=== PATIENT | female | born 1985 | race Caucasian/White ===

== ENCOUNTER 2016-10-18 21:15 | Emergency (ER) | payer OTHER ==
[~2016-10-18] VITALS: Ht 160 cm; Wt 88.8 kg
[2016-10-18 21:27] VITALS: BP 109/68; PULSE 104; RESP 18; TEMP 98.4; O2SAT 98
[2016-10-18 21:45] VITALS: BP 134/61; PULSE 101; RESP 18; O2SAT 100
[2016-10-18] MEDS ORDERED: SODIUM CHLORIDE 0.9% FLUSH 10 ML FLUSH IV FLUSH PRN (21:45)
--- NOTE | 2016-10-18 21:48 | PD ---
HPI Chief Complaint: Musculoskeletal Complaint Time Seen by Provider: 21:32 Travel History International Travel<30 days: No Contact w/Intl Traveler<30days: No Traveled to known affect area: No History of Present Illness HPI Patient is a 31-year-old female presents emergency department for complaints of left lower extremity swelling and sensation that the bruise on the posterior aspect of her calf. Patient states symptoms been going on for 3 days and constant. States she's not yet established with an PEDIATRIC ANESTHESIOLOGIST states she is approximately 6 weeks . She is G6 PD 3023. Denies any shortness of breath. Denies a vaginal bleeding vaginal discharge or loss of fluid. Denies any history of blood clots. On review of systems the patient does endorse some mild right lower quadrant discomfort which is been nagging her for the past week or so. No nausea vomiting diarrhea constipation. PFSH Past Medical History Medical History: Denies Significant Hx Diminished Hearing: No Tetanus Vaccination: Unknown Influenza Vaccination: No ?: LMP: 09/02/16 Past Surgical History Section: Yes Gynecologic Surgery: Yes () Social History Alcohol Use: No Tobacco Use: No Substance Use: No Allergies-Medications (Allergen,Severity, Reaction): Coded Allergies: No Known Allergies (Unverified , 10/18/16) Reported Meds & Prescriptions Reported Meds & Active Scripts Active Macrobid (Nitrofurantoin Monoh/Nitrofur Macro) 100 Mg Cap 100 Mg PO BID 7 Days Plus Iron 29-1 mg ( Vit-Iron Carbonyl) 1 Tab Tab 1 Tab PO DAILY Review of Systems Except as stated in HPI: all other systems reviewed are Neg Physical Exam Narrative GENERAL: Well-developed well-nourished no apparent distress. SKIN: Focused skin assessment warm/dry. HEAD: Atraumatic. Normocephalic. EYES: Pupils equal and round. No scleral icterus. No injection or drainage. ENT: No nasal bleeding or discharge. Mucous membranes pink and moist. NECK: Trachea midline. No JVD. CARDIOVASCULAR: Regular rate and rhythm. No murmur appreciated. RESPIRATORY: No accessory muscle use. Clear to auscultation. Breath sounds equal bilaterally. GASTROINTESTINAL: Abdomen soft, non-tender, nondistended. Hepatic and splenic margins not palpable. MUSCULOSKELETAL: No obvious deformities. No clubbing. No cyanosis. There is 1 + minimal edema to bilateral lower extremities, left lower extremity is possibly slightly increased in caliber over the right. Homans sign is negative. Nontender to palpation. No bruising. No cordlike structure appreciated. NEUROLOGICAL: Awake and alert. No obvious cranial nerve deficits. Motor grossly within normal limits. Normal speech. PSYCHIATRIC: Appropriate mood and affect; insight and judgment normal. Data Data Last Documented VS Vital Signs Date Time Temp Pulse Resp B/P Pulse Ox O2 Delivery O2 Flow Rate FiO2 10/19/16 00:25 102 16 107/66 98 Room Air 10/18/16 21:27 98.4 Orders Basic Metabolic Panel (Bmp) (10/18/16 21:37) Beta Hcg (Quant/Titer) (10/18/16 21:37) Comprehensive Metabolic Panel (10/18/16 21:37) Prothrombin Time / Inr (Pt) (10/18/16 21:37) Act Partial Throm Time (Ptt) (10/18/16 21:37) Urinalysis - C+S If Indicated (10/18/16 21:37) Iv Access Insert/Monitor (10/18/16 21:37) Ecg Monitoring (10/18/16 21:37) Oximetry (10/18/16 21:37) Sodium Chloride 0.9% Flush (Ns Flush) (10/18/16 21:45) Electrocardiogram (10/18/16 21:37) Us Leg Venous Doppler (10/18/16 21:37) Us Pelvis (Ques Pr/Ect)W Trans (10/18/16 21:37) Ed Urine Pregnancytest Poc (10/18/16 22:18) Urine Culture (10/18/16 22:00) Complete Blood Count With Diff (10/18/16 22:47) Nitrofurantoin Monohyd Macrocr (Macrobid (10/19/16 00:45) Labs Laboratory Tests Test 10/18/16 22:00 White Blood Count 10.3 TH/MM3 Red Blood Count 4.20 MIL/MM3 Hemoglobin 12.6 GM/DL Hematocrit 36.0 % Mean Corpuscular Volume 85.8 FL Mean Corpuscular Hemoglobin 29.9 PG Mean Corpuscular Hemoglobin 34.9 % Concent Red Cell Distribution Width 13.1 % Platelet Count 232 TH/MM3 Mean Platelet Volume 10.3 FL Neutrophils (%) (Auto) 57.7 % Lymphocytes (%) (Auto) 32.1 % Monocytes (%) (Auto) 7.5 % Eosinophils (%) (Auto) 2.0 % Basophils (%) (Auto) 0.7 % Neutrophils # (Auto) 5.9 TH/MM3 Lymphocytes # (Auto) 3.3 TH/MM3 Monocytes # (Auto) 0.8 TH/MM3 Eosinophils # (Auto) 0.2 TH/MM3 Basophils # (Auto) 0.1 TH/MM3 CBC Comment DIFF FINAL Differential Comment Prothrombin Time 9.7 SEC Prothromb Time International 0.9 RATIO Ratio Activated Partial 25.0 SEC Thromboplast Time Urine Color YELLOW Urine Turbidity CLEAR Urine pH 6.0 Urine Specific Dwight 1.016 Urine Protein NEG mg/dL Urine Glucose (UA) NEG mg/dL Urine Ketones NEG mg/dL Urine Occult Blood NEG Urine Nitrite NEG Urine Bilirubin NEG Urine Leukocyte Esterase NEG Urine RBC 0-2 /hpf Urine WBC 3-5 /hpf Urine Squamous Epithelial 0-5 /hpf Cells Urine Bacteria MANY /hpf Microscopic Urinalysis Comment CULTURE INDICATED Sodium Level 141 MEQ/L Potassium Level 3.5 MEQ/L Chloride Level 107 MEQ/L Carbon Dioxide Level 24.5 MEQ/L Anion Gap 10 MEQ/L Blood Urea Nitrogen 15 MG/DL Creatinine 0.76 MG/DL Estimat Glomerular Filtration 89 ML/MIN Rate Random Glucose 95 MG/DL Calcium Level 7.6 MG/DL Total Bilirubin 0.1 MG/DL Aspartate Amino Transf 16 U/L (AST/SGOT) Alanine Aminotransferase 25 U/L (ALT/SGPT) Alkaline Phosphatase 79 U/L Total Protein 6.9 GM/DL Albumin 3.2 GM/DL Human Chorionic Gonadotropin, 5196 MIU/ML Quant [facility] Medical Decision Making Medical Screen Exam Complete: Yes Emergency Medical Condition: Yes Interpretation(s) EKG shows normal sinus rhythm normal axis normal R-wave progression. No concerning ST segment changes. Intervals within normal limits. This normal EKG. Differential Diagnosis DVT seems unlikely, preeclampsia seems unlikely, ectopic seems unlikely but needs exclusion. Urinary tract infection, asymptomatic bacteriuria. Narrative Course Patient was roomed emergency department, she appears well in no apparent distress. Her abdominal pain was only elicited by review of systems. Ultrasound were obtained of her left lower extremity as well as her abdomen: Last 24 hours Impressions Pelvis Ultrasound 10/18/16 6414 Signed Impressions: Service Date/Time: Tuesday, October 18, 2016 23:06 - CONCLUSION: 1. Early intrauterine which is too early for dating. This appears approximately 4-5 weeks of menstrual age. 2. Small hypoechoic fluid collections in the uterus which could represent small subchorionic hemorrhages. He 3. Small complex cyst in right ovary most consistent with an early corpus luteal cyst. Tarun Gould MD Lower Extremity Ultrasound 10/18/16 2430 Signed Impressions: Service Date/Time: Tuesday, October 18, 2016 22:56 - CONCLUSION: Unremarkable exam with no evidence of deep venous thrombosis. Tarun Gould MD Patient does have some subchorionic hemorrhage, she does not know her blood type but states she has not needed any shot after her previous pregnancies. Highly doubt any maternal hemorrhage at this time. Recommended the patient have a pelvic exam and she declined at this time. She is stable for discharge and recommend following with an PEDIATRIC ANESTHESIOLOGIST. Diagnosis Primary Impression: Pain and swelling of left lower extremity Additional Impression: Asymptomatic bacteriuria Additional Instructions: Follow-up with your PEDIATRIC ANESTHESIOLOGIST as soon as possible. Scripts Nitrofurantoin Monohydrate Macrocrystals (Macrobid)100 Mg [id number] Mg PO BID 7 Days Ref 0 Prov:Jarvis Griggs MD 10/19/16 Vit-Iron Carbonyl ( Plus Iron 29-1 mg)1 Tab Tab1 Tab PO DAILY #30 TAB Ref 9 Prov:Jarvis Griggs MD 10/19/16 Disposition: 01 DISCHARGE HOME Condition: Stable Jarvis Griggs MD Oct 18, 2016 21:48
[2016-10-18 22:36] LABS: CHLORIDE 107 MEQ/L (98-107); POTASSIUM 3.5 MEQ/L (3.5-5.1); SODIUM (NA) 141 MEQ/L (136-145)
[2016-10-18 22:38] LABS: BLOOD, URINE NEG (NEG); GLUCOSE,URINE NEG (NEG); KETONE, URINE NEG (NEG); NITRITE,URINE NEG (NEG)
[2016-10-18 22:40] LABS: ANION GAP 10 MEQ/L (5-15); BICARBONATE 24.5 MEQ/L (21.0-32.0)
[2016-10-18 22:41] LABS: BLOOD UREA NITROGEN 15 MG/DL (7-18)
[2016-10-18 22:43] LABS: ALT (GPT) 25 U/L (10-53)
[2016-10-18 22:44] LABS: AST (GOT) 16 U/L (15-37); GLOMERULAR FILTRATION RATE 89 ML/MIN (>89)
[2016-10-18 22:45] LABS: TOTAL BILIRUBIN ADULT 0.1 MG/DL (0.2-1.0); URINE COLOR YELLOW (YELLW/STRAW)
[2016-10-18 22:46] LABS: ALKALINE PHOSPHATASE 79 U/L (45-117); BACTERIA, URINE MANY /hpf; COMMENT (UR) CULTURE INDICATED; CULTURE IF INDICATED CULTURE INDICATED; RBC, URINE 0-2 /hpf (0-3); SQUAMOUS EPITHELIAL CELL URINE 0-5 /hpf (0-5)
[2016-10-18 22:49] LABS: INTERNATIONAL NORMALIZED RATIO 0.9 RATIO; PROTHROMBIN TIME - PATIENT 9.7 SEC (9.8-11.6)
[2016-10-18 22:54] LABS: AUTOMATED NEUTROPHIL # 5.9 TH/MM3 (1.8-7.7); BASOPHIL # 0.1 TH/MM3 (0-0.2); BASOPHIL % 0.7 % (0.0-2.0); EOSINOPHIL # 0.2 TH/MM3 (0-0.4); HEMO FLAGS DIFF FINAL; LYMPH % 32.1 % (9.0-44.0); LYMPHOCYTE # 3.3 TH/MM3 (1.0-4.8); MEAN CELL VOLUME 85.8 FL (80.0-100.0); MEAN CORPUSCULAR HEMOGLOBIN 29.9 PG (27.0-34.0); MEAN CORPUSCULAR HGB CONC 34.9 % (32.0-36.0); MONO % 7.5 % (0.0-8.0); NEUT % 57.7 % (16.0-70.0); PLATELET COUNT 232 TH/MM3 (150-450); RED CELL DISTRIBUTION WIDTH 13.1 % (11.6-17.2); WHITE BLOOD COUNT 10.3 TH/MM3 (4.0-11.0)
[2016-10-18 23:00] VITALS: BP 122/67; PULSE 110; RESP 16; O2SAT 100
[2016-10-18 23:01] LABS: BETA HCG QUANT 5196 MIU/ML (0-5)
--- NOTE | 2016-10-18 23:42 | RADHPO ---
EXAM DATE/TIME: 10/18/2016 22:56 [facility] COMPARISON: No previous studies available for comparison. INDICATIONS : Left leg swelling and pain. MEDICAL HISTORY : . SURGICAL HISTORY : section. ENCOUNTER: Initial ACUITY: 3 days PAIN SCORE: 0/10 LOCATION: Left leg. TECHNIQUE: Venous ultrasound of the leg was performed from the inguinal ligament to the proximal calf. Real-jay e, color Doppler and spectral tracing, compression and augmentation techniques were used. FINDINGS: There is normal compressibility of the deep venous system from the inguinal region to the proximal ca lf. No echogenic clot is seen in the lumen of the common femoral, femoral, popliteal, and posterior tibial veins. There is a normal response of the venous system to proximal and distal augmentation an d respiration. CONCLUSION: Unremarkable exam with no evidence of deep venous thrombosis. Tarun Gould MD on October 18, 2016 at 23:39 Board Certified Radiologist. This report was verified electronically.
--- NOTE | 2016-10-18 23:53 | RADHPO ---
EXAM DATE/TIME: 10/18/2016 23:06 [facility] COMPARISON: No previous studies available for comparison. INDICATIONS : Pelvic pain. LAB(S): Beta-hC,196 MEDICAL HISTORY : . SURGICAL HISTORY : section. ENCOUNTER: Initial ACUITY: 2 days PAIN SCORE: 5/10 LOCATION: Bilateral pelvis MEASUREMENTS: UTERUS: 9.6 x 6.9 x 5.6 cm ENDOMETRIAL STRIPE: 16 mm RIGHT OVARY: 4.4 x 3.1 x 2.7 cm LEFT OVARY: 2.6 x 2.3 x 2.3 cm FREE FLUID: No CROWN RUMP LENGTH: 0.2 cm FHR: Nonvisualized BPM FINDINGS: UTERUS: There is a single early intrauterine present with a well-formed gestational sac and small y olk sac. There is a small questionable pole. No heart beat could be identified. There are small hypoechoic areas in lower uterine segment measuring 11 x 4 x 7 mm and along the right side of the ge stational sac measuring 1.9 x 0.7 x 1.5 cm. RIGHT OVARY: There is a complex cystic structure measuring 2.3 x 1 point #1.9 cm. LEFT OVARY: Ovary contains no mass or significant cystic lesion. MISCELLANEOUS: No free fluid. CONCLUSION: 1. Early intrauterine which is too early for dating. This appears approximately 4-5 weeks o f menstrual age. 2. Small hypoechoic fluid collections in the uterus which could represent small subchorionic hemorrha ges. He 3. Small complex cyst in right ovary most consistent with an early corpus luteal cyst. Tarun Gould MD on October 18, 2016 at 23:47 Board Certified Radiologist. This report was verified electronically.
[2016-10-19] MEDS ORDERED: PREN29TA PO (00:10)
[2016-10-19] MEDS ORDERED: MACR100C2 PO (00:10)
[2016-10-19 00:25] VITALS: BP 107/66; PULSE 102; RESP 16; O2SAT 98
[2016-10-19] MEDS ORDERED: NITROFURANTOIN MONOHYD MACROCR 100 MG CAP PO ONE (00:45)
--- NOTE | 2016-10-20 09:59 | EKG ---
Date Performed: 10/18/2016 Time Performed: 21:50:08 PTAGE: 31 years EKG: Sinus rhythm Inferior and lateral ST elevation - possible early repolarization Borderline ECG NO PREVIOUS TRACING DOCTOR: Huey Barajas Interpretating Date/Time 10/20/2016 09:47:32
== END 2016-10-19 00:45 | disposition home or self-care (01) ==
LOC: EDBD → PHED 21:15
DX: M79.89 Other specified soft tissue disorders (principal); R10.31 Right lower quadrant pain
CPT/HCPCS: 76700; 76817; 80053; 81001; 84702; 84703; 85025; 85610; 85730; 87086; 93005; 93971; 99285

== ENCOUNTER 2017-05-30 11:39 | Emergency (ER) | payer OTHER ==
[~2017-05-30 11:39] MED LIST: MACR100C2 PO; PREN29TA PO
--- NOTE | 2017-05-30 12:14 | PD ---
HPI Chief Complaint lower pelvic pressure Date Seen: May 30, 2017 Travel History International Travel<30 Days: No Contact w/Intl Traveler<30Days: No History of Present Illness HPI Ms. Jones is a 31 yo patient of Susie Diaz at 38 3/7 weeks who presents to OB ED with complaint of lower pelvic pressure. Patient states that this started this morning; she was having [place] contractions previously. Patient describes pressure as constant and not suggestive of contractions. Patient does not report any associated vaginal symptoms, discharge , or bleeding. No dysuria or fevers. Patient thought she had decreased movement this morning but that she has since felt normal movement. Patient does not report significant chest pain or shortness of breath. Patient has chronic L leg swelling without pain. Patient reports benign course. She has history of CS x2; she has repeat CS and bilateral salpingectomy scheduled for next 06/03 at 39 weeks GA ( prior CS for previa, subsequent was repeat CS). Patient states that her GBS was obtained but she does not know her status. Weeks Gestation: 38 Para: 3 : 6 Miscarriage: 1 : 1 History Past Medical History Narrative Medical None reported Obstetric History Obstetric History CS x2 (1st for previa w/ ROM, second as repeat) Past Surgical History Narrative Surgical CS x2 Family History Family History: Negative Social History Alcohol Use: No Tobacco Use: No Substance Abuse: No Allergies-Medications (Allergen,Severity, Reaction): Coded Allergies: No Known Allergies (Unverified , 10/18/16) Home Meds Active Scripts Nitrofurantoin Monohydrate Macrocrystals (Macrobid) 100 Mg Cap, 100 MG PO BID for Infection for 7 Days, CAP 0 Refills Prov:Jarvis Griggs MD 10/19/16 Vit-Iron Carbonyl ( Plus Iron 29-1 mg) 1 Tab Tab, 1 TAB PO DAILY for Nutritional Supplement, #30 TAB 9 Refills Prov:Jarvis Griggs MD 10/19/16 Review of Systems General / Constitutional: No: Fever, Chills Eyes: No: Blurred Vision HENT: No: Headaches Cardiovascular: No: Chest Pain or Discomfort Respiratory: No: Short of Breath Gastrointestinal: Abdominal Pain, No: Nausea, Vomiting Genitourinary: No: Urgency, Dysuria Skin: No Rash, No Itching Psychiatric: No: Anxiety, Depression Physical Exam Afebrile Normotensive Stable VS Narrative GENERAL: Well-nourished, well-developed patient. SKIN: Warm and dry. HEAD: Normocephalic and atraumatic. EYES: No scleral icterus. No injection or drainage. ENT: No nasal drainage noted. Mucous membranes pink. Airway patent. NECK: Supple, trachea midline. No JVD. CARDIOVASCULAR: Regular rate and rhythm without murmurs. Normal perfusion RESPIRATORY: CTAB; normal rate ABDOMEN/GI: Abdomen soft, non-tender, bowel sounds present, no rebound, no guarding Gravid EXTREMITIES: No cyanosis or edema. NEUROLOGICAL: Awake and alert. Motor and sensory function grossly within normal limits. GENITOURINARY: External Genitalia: intact and normal in appearance Cervix: Dilatation: 0 Effacement: Noneffaced Station: -2 Presentation: V Membranes: Intact Uterine Contractions: occasional/irritability FHT's: Category: 1 Baseline: 145 Reactive: Y Variability: Mod Decels: None Data Data Vital Signs Reviewed: Yes MDM Medical Record Reviewed: Yes Narrative Course / MDM Ms. Jones is a 31 yo patient of Susie Diaz at 38 3/7 weeks who presents to OB ED with complaint of lower pelvic pressure -Cat 1 rhythm -No regular contractions -Cervix closed, non-effaced -Reassuring physical exam; VS Assessment/Plan: Lower abdominal pain without contractions or cervical dilation; suspect ligamentous etiology/lower lie. Category 1 rhythm. History of CS with planned repeat CS 06/03 -Patient advised that she can rest at home due to her not being in labor at this time; patient counselled to return to OB ED with any regular contractions, decreased movement, concern for ROM, or any other concerns Diagnosis Diagnosis: Primary Impression: Abdominal cramping affecting , antepartum Disposition: 01 DISCHARGE HOME Condition: Stable Patient Instructions: Abdominal Pain in (ED), Movement (ED), General Instructions, Early Labor Signs (ED) Pedro Watkins MD, R3 May 30, 2017 12:14
--- NOTE | 2017-05-30 12:24 | PD ---
History of Present Illness Date Seen: May 30, 2017 Time Seen: 12:21 History of Present Illness NST Note Indication: decreased FM Baseline: 145 Accelerations: present Decelerations: absent Variability: moderate Interpretation: reactive Dispo: stable for d/c home with precautions; f/u for rCS as scheduled Taye Mccain MD May 30, 2017 12:24
== END 2017-05-30 16:45 | disposition home or self-care (01) ==
LOC: HOBED 11:39
DX: R10.30 Lower abdominal pain, unspecified (principal); Z3A.38 38 weeks gestation of pregnancy; M79.89 Other specified soft tissue disorders
CPT/HCPCS: 99283

== ENCOUNTER 2017-06-03 08:21 | Inpatient (IN) | payer OTHER ==
--- NOTE | 2017-05-23 20:10 | PD.CONS ---
HPI Chief Complaint C section consult 37 weeks and 3 days Date Seen: May 23, 2017 Time Seen: 15:20 Travel History International Travel<30 Days: No Contact w/Intl Traveler<30Days: No Known Affected Area: No History of Present Illness HPI Pt is a 31 yo at 37 weeks and 3 days who presents for consultation regarding c section. EDC is 06-10-2017 based on sure LMP of 09-03-2017, and consistent with 1st trimester ultrasound. Patient receives care with Susie Diaz. This only complicated by history of 2 previous C sections. Pt has had 2 previous low transverse C sections. First was done at [place], [place] in 2014 at 29 week for placenta previa and ruptured membranes. Second was elective repeat at 39 weeks. We planned repeat C section at 39 weeks. Pt plans tubal sterilization. She is aware of alternatives including LARCs and vasectomy. We discussed irreversibility and possibility of regret. She agrees to bilateral salpingectomy at time of C Section. Weeks Gestation: 37 Para: 3 : 6 Last Menstrual Period: Sep 03, 2016 Miscarriage: 1 : 1 History Past Medical History Medical History: Denies Significant Hx Past Surgical History Narrative Surgical previous C sections x 2 Surgical History: No Previous Surgery Family History Family History: Negative Social History Alcohol Use: No Tobacco Use: No Substance Abuse: No Allergies-Medications (Allergen,Severity, Reaction): Coded Allergies: No Known Allergies (Unverified , 10/18/16) Home Meds Active Scripts Nitrofurantoin Monohydrate Macrocrystals (Macrobid) 100 Mg Cap, 100 MG PO BID for Infection for 7 Days, CAP 0 Refills Prov:Jarvis Griggs MD 10/19/16 Vit-Iron Carbonyl ( Plus Iron 29-1 mg) 1 Tab Tab, 1 TAB PO DAILY for Nutritional Supplement, #30 TAB 9 Refills Prov:Jarvis Griggs MD 10/19/16 Physical Exam Narrative GENERAL: Well-nourished, well-developed patient. SKIN: Warm and dry. HEAD: Normocephalic and atraumatic. EYES: No scleral icterus. No injection or drainage. ENT: No nasal drainage noted. Mucous membranes pink. Airway patent. NECK: Supple, trachea midline. No JVD. CARDIOVASCULAR: Regular rate and rhythm without murmurs, gallops, or rubs. RESPIRATORY: Breath sounds equal bilaterally. No accessory muscle use. BREASTS: Bilateral exam showed no masses , no retractions, no nipple discharge. ABDOMEN/GI: Abdomen soft, non-tender, bowel sounds present, no rebound, no guarding EXTREMITIES: No cyanosis or edema. BACK: Nontender without obvious deformity. No CVA tenderness. NEUROLOGICAL: Awake and alert. Motor and sensory grossly within normal limits. Five out of 5 muscle strength in all muscle groups. Normal speech. Data Data Vital Signs Reviewed: Yes MDM Plan 31 yo at 37 weeks and 3 days. Pt with two previous c sections and unwanted fertility. We plan repeat C section and bilateral salpingectomy at 39 weeks- 06-03-2017. Disposition: 01 DISCHARGE HOME Condition: Good Breezy Squires MD May 23, 2017 20:10
[~2017-06-03] VITALS: Ht 160 cm; Wt 91.0 kg
[2017-06-03] MEDS ORDERED: LACTATED RINGER'S 1000 ML INJ 1,000 ML IV ONE (08:49)
--- NOTE | 2017-06-03 08:52 | HHI.HP ---
History & Physical H&P HPI Chief Complaint C section consult 37 weeks and 3 days Date Seen: May 23, 2017 Time Seen: 15:20 Travel History International Travel<30 Days: No Contact w/Intl Traveler<30Days: No Known Affected Area: No History of Present Illness HPI Pt is a 31 yo at 39 weeks and 3 days who presents for c section. EDC is 06-10-2017 based on sure LMP of 09-03-2017, and consistent with 1st trimester ultrasound. Patient receives care with Susie Diaz. This only complicated by history of 2 previous C sections. Pt has had 2 previous low transverse C sections. First was done at [place], [place] in 2014 at 29 week for placenta previa and ruptured membranes. Second was elective repeat at 39 weeks. We planned repeat C section at 39 weeks. Pt plans tubal sterilization. She is aware of alternatives including LARCs and vasectomy. We discussed irreversibility and possibility of regret. She agrees to bilateral salpingectomy at time of C Section. Weeks Gestation: 37 Para: 3 : 6 Last Menstrual Period: Sep 03, 2016 Miscarriage: 1 : 1 History Past Medical History Medical History: Denies Significant Hx Past Surgical History Narrative Surgical previous C sections x 2 Surgical History: No Previous Surgery Family History Family History: Negative Social History Alcohol Use: No Tobacco Use: No Substance Abuse: No Allergies-Medications (Allergen,Severity, Reaction): Coded Allergies: No Known Allergies (Unverified , 10/18/16) Home Meds Active Scripts Nitrofurantoin Monohydrate Macrocrystals (Macrobid) 100 Mg Cap, 100 MG PO BID for Infection for 7 Days, CAP 0 Refills Prov:Jarvis Griggs MD 10/19/16 Vit-Iron Carbonyl ( Plus Iron 29-1 mg) 1 Tab Tab, 1 TAB PO DAILY for Nutritional Supplement, #30 TAB 9 Refills Prov:Jarvis Griggs MD 10/19/16 Physical Exam Narrative GENERAL: Well-nourished, well-developed patient. SKIN: Warm and dry. HEAD: Normocephalic and atraumatic. EYES: No scleral icterus. No injection or drainage. ENT: No nasal drainage noted. Mucous membranes pink. Airway patent. NECK: Supple, trachea midline. No JVD. CARDIOVASCULAR: Regular rate and rhythm without murmurs, gallops, or rubs. RESPIRATORY: Breath sounds equal bilaterally. No accessory muscle use. BREASTS: Bilateral exam showed no masses , no retractions, no nipple discharge. ABDOMEN/GI: Abdomen soft, non-tender, bowel sounds present, no rebound, no guarding EXTREMITIES: No cyanosis or edema. BACK: Nontender without obvious deformity. No CVA tenderness. NEUROLOGICAL: Awake and alert. Motor and sensory grossly within normal limits. Five out of 5 muscle strength in all muscle groups. Normal speech. Data Data Vital Signs Reviewed: Yes MDM Plan 31 yo at 3 9 weeks and 3 days. Pt with two previous c sections and unwanted fertility. We plan repeat C section and bilateral salpingectomy at 39 weeks- 06-03-2017. Disposition: ADMIT for [facility] BT Condition: Good Jun 03, 2017 0900 Yuriy Castellano II, MD Jun 03, 2017 08:52
[2017-06-03] MEDS ORDERED: LACTATED RINGER'S 1000 ML INJ 1,000 ML IV SCH ×2 (09:19→18:10)
[2017-06-03 09:55] LABS: BASOPHIL % 0.6 % (0.0-2.0); EOSINOPHIL # 0.1 TH/MM3 (0-0.4); EOSINOPHIL % 1.6 % (0.0-4.0); HEMATOCRIT 27.5 % (35.0-46.0); HEMOGLOBIN 9.4 GM/DL (11.6-15.3); LYMPH % 23.7 % (9.0-44.0); LYMPHOCYTE # 1.8 TH/MM3 (1.0-4.8); MEAN CELL VOLUME 79.9 FL (80.0-100.0); MEAN CORPUSCULAR HEMOGLOBIN 27.3 PG (27.0-34.0); MEAN CORPUSCULAR HGB CONC 34.1 % (32.0-36.0); MEAN PLATELET VOLUME 9.1 FL (7.0-11.0); MONO % 8.4 % (0.0-8.0); MONOCYTE # 0.6 TH/MM3 (0-0.9); NEUT % 65.7 % (16.0-70.0); PLATELET COUNT 280 TH/MM3 (150-450); RED BLOOD COUNT 3.44 MIL/MM3 (4.00-5.30); RED CELL DISTRIBUTION WIDTH 14.8 % (11.6-17.2); WHITE BLOOD COUNT 7.6 TH/MM3 (4.0-11.0)
[2017-06-03] MEDS ORDERED: ceFAZolin 2 GM PREMIX 50 ML IV SCH (10:00)
[2017-06-03 10:04] LABS: AMORPHOUS SEDIMENT, URINE RARE; BACTERIA, URINE MANY /hpf; BILIRUBIN, URINE NEG (NEG); BLOOD, URINE NEG (NEG); GLUCOSE,URINE NEG (NEG); KETONE, URINE NEG (NEG); MUCUS URINE FEW /lpf (OCC); NITRITE,URINE NEG (NEG); PH, URINE 6.5 (5.0-8.5); SQUAMOUS EPITHELIAL CELL URINE 2 /hpf (0-5); URINE COLOR YELLOW (YELLW/STRAW); URINE LEUKOCYTE ESTERASE MOD (NEG)
[2017-06-03] MEDS ORDERED: CITRIC ACID-SODIUM CITRATE LIQ 30 ML UDC PO SCH (10:30)
--- NOTE | 2017-06-03 10:34 | HHI.PR ---
Subjective Remarks OBHG 31-year-old who presented for her third delivery. She also desires a bilateral tubal ligation and her papers are mature. We discussed the risks/benefits/alternatives to delivery including but not limited to pain, infection, bleeding, injury to other organs like the bladder/bowel/nerves/ vessels, injury to the baby, need for repeat operation, need for transfusion, need for hysterectomy, wound infection/breakdown and other possible complications. We also discussed the risk of tubal ligation including failure of approximately 1%, the irreversible and permanent nature of the procedure. The patient states that she does not desire further biological children. We discussed alternatives including a long acting reversible contraception options. The patient declines and is certain she does not desire any further biological children. All of her questions were answered and consent was signed. heart tones are reassuring. Objective Result Diagram: 06/03/17 0840 Zahra Cintron MD Jun 03, 2017 10:34
[2017-06-03] MEDS ORDERED: MORPHINE SULFATE PF 5 MG/10 ML VIAL ONE (11:23)
[2017-06-03] MEDS ORDERED: EPIDURAL-DIPHENHYDRAMINE HCL 50 MG/ML VIAL IV PUSH PRN (11:30)
[2017-06-03] MEDS ORDERED: EPIDURAL-NALOXONE HCL 0.4 MG/ML AMP IV PUSH PRN (11:30)
[2017-06-03] MEDS ORDERED: EPIDURAL-NO SYSTEMIC NARCOTICS PRN (11:30)
[2017-06-03] MEDS ORDERED: EPIDURAL-DO NOT ADMINISTER ANTICOAGULANTS PRN (11:30)
[2017-06-03] MEDS ORDERED: EPIDURAL-DIPHENHYDRAMINE HCL 50 MG CAP PO PRN (11:30)
[2017-06-03] MEDS ORDERED: PHENYLEPHRINE HCL 10 MG/ML VIAL IV ONE (12:00)
[2017-06-03] MEDS ORDERED: OXYTOCIN 10 UNIT/ML AMP IV ONE (12:00)
[2017-06-03] MEDS ORDERED: ONDANSETRON HCL 4 MG/2 ML VIAL IV ONE (12:00)
[2017-06-03] MEDS ORDERED: DEXAMETHASONE SOD PHOS 4 MG/ML VIAL IV ONE (12:00)
[2017-06-03] MEDS ORDERED: LACTATED RINGER'S 1000 ML INJ 2,000 ML IV ONE (12:00)
[2017-06-03] MEDS ORDERED: PHENYLEPH/NS 1000 MCG/10 ML SYR IV ONE (12:00)
[2017-06-03] MEDS ORDERED: ePHEDrine/NS 25 MG/5 ML SYRINGE IV ONE (12:00)
[2017-06-03] MEDS ORDERED: IBUPROFEN 800 MG TAB PO PRN (13:00)
[2017-06-03] MEDS ORDERED: BENZOCAINE 20% TOPICAL SPRAY 60 ML CAN TOPICAL PRN (13:00)
[2017-06-03] MEDS ORDERED: SODIUM CHLORIDE 0.9% FLUSH 10 ML FLUSH IV FLUSH PRN ×2 (13:00→13:15)
[2017-06-03] MEDS ORDERED: DOCUSATE SODIUM 50 MG/SENNA 8.6 MG TAB PO PRN (13:00)
[2017-06-03] MEDS ORDERED: WITCH HAZEL 50%/GLYCERIN 12.5% 40 PAD JAR TOPICAL PRN (13:00)
[2017-06-03] MEDS ORDERED: ALUMINUM/MAGNESIUM/SIMETH 30 ML CUP PO PRN (13:00)
[2017-06-03] MEDS ORDERED: oxyCODONE/ACETAMINOPHEN 5 MG/325 MG TAB PO PRN ×3 (13:00→13:15)
[2017-06-03] MEDS ORDERED: OXYTOCIN 30 UNITS-500ML PREMIX 500 ML IV SCH (13:00)
[2017-06-03] MEDS ORDERED: ONDANSETRON ODT 4 MG TAB PO PRN (13:00)
[2017-06-03] MEDS ORDERED: ACETAMINOPHEN 325 MG TAB PO PRN ×2 (13:00→13:15)
[2017-06-03] MEDS ORDERED: ZOLPIDEM TARTRATE 5 MG TAB PO PRN (13:00)
[2017-06-03] MEDS ORDERED: OXYTOCIN 30 UNITS-500ML PREMIX 500 ML IV ONE (13:15)
[2017-06-03] MEDS ORDERED: ONDANSETRON HCL 4 MG/2 ML VIAL IV PUSH PRN (13:15)
[2017-06-03] MEDS ORDERED: OXYTOCIN 30 UNITS-500ML PREMIX 500 ML ONE (13:46)
--- NOTE | 2017-06-03 13:47 | PD.OB.DELI ---
Procedure Note Section Procedure Performed by Zahra Cintron Procedure: Repeat Low Transverse Sec Indication for delivery: Desired elective repeat Previous condition: None Informed consent obtained: For anesthesia, For procedure Confirmed correct: Patient, Procedure, Site, Time-out taken Anesthesia: Spinal Medication prior to procedure: As documented in eMAR Monitoring during procedure: Blood pressure monitoring, monitor, Pulse oximetry Urinary catheter: Inserted using sterile technique, To dependent drainage, ml urine output (200cc clear urine at the end of the procedure) Sterile preparation: In usual fashion, Other (Chloraprep) Position: Supine with wedge to left side Operative Features Skin Incision: Pfannenstiel Uterine Incision: Low transverse w/knife / blunt ext Membranes Ruptured: Artificially Presentation: Occiput posterior Delivery date: Jun 03, 2017 Delivery time: 11:52 Delivery of : Uneventful : Male One Minute : 8 Five Minute : 9 Weight: 7#10oz Status of : Viable, Cord blood Placenta delivered: Intact Medications: Antibiotics, Oxytocin Estimated blood loss: 400cc Procedure tolerated: Well Maternal Condition: Stable Condition: Stable Procedure in detail See dictation Zahra Cintron MD Jun 03, 2017 13:47
[2017-06-03] MEDS ORDERED: MEASLES, MUMPS, RUBELLA VACCINE 0.5 ML VIAL SQ ONE (16:00)
[2017-06-03] MEDS ORDERED: DIPHTH/TETANUS/ACEL PERTUSSIS (BOOSTER) 0.5 ML VIAL/PFS IM ONE (16:00)
[2017-06-03 20:00] VITALS: BP 91/60; PULSE 80; RESP 18; TEMP 98.2; O2SAT 97
[2017-06-03] MEDS ORDERED: PROMETHAZINE INJ 25 MG/ML VIAL IM PRN (20:30)
[2017-06-03] MEDS: KETOROLAC TROMETHAMINE 30 MG/ML (IVP) VIAL IV PUSH SCH (20:58)
[2017-06-03] MEDS ORDERED: SODIUM CHLORIDE 0.9% FLUSH 10 ML FLUSH IV FLUSH SCH ×2 (21:00)
[2017-06-03 22:22] VITALS: RESP 16
[2017-06-03] MEDS ORDERED: OXYTOCIN 30 UNITS-500ML PREMIX 500 ML IV PRN (23:15)
[2017-06-03 23:30] VITALS: BP 95/58; PULSE 63; RESP 18; TEMP 98; O2SAT 95
[2017-06-04 01:24] VITALS: RESP 18
[2017-06-04] MEDS: KETOROLAC TROMETHAMINE 30 MG/ML (IVP) VIAL IV PUSH SCH ×3 (03:25→14:20)
[2017-06-04 04:00] VITALS: BP 98/50; PULSE 76; RESP 18; TEMP 97.6; O2SAT 97
[2017-06-04 06:06] LABS: AUTOMATED NEUTROPHIL # 8.1 TH/MM3 (1.8-7.7); BASOPHIL % 0.3 % (0.0-2.0); EOSINOPHIL # 0.1 TH/MM3 (0-0.4); EOSINOPHIL % 0.5 % (0.0-4.0); HEMATOCRIT 24.1 % (35.0-46.0); HEMOGLOBIN 8.1 GM/DL (11.6-15.3); MEAN CELL VOLUME 79.6 FL (80.0-100.0); MEAN CORPUSCULAR HEMOGLOBIN 26.9 PG (27.0-34.0); MEAN CORPUSCULAR HGB CONC 33.7 % (32.0-36.0); MEAN PLATELET VOLUME 9.1 FL (7.0-11.0); MONO % 8.4 % (0.0-8.0); MONOCYTE # 0.9 TH/MM3 (0-0.9); NEUT % 72.8 % (16.0-70.0); PLATELET COUNT 215 TH/MM3 (150-450); RED BLOOD COUNT 3.02 MIL/MM3 (4.00-5.30); RED CELL DISTRIBUTION WIDTH 14.9 % (11.6-17.2); WHITE BLOOD COUNT 11.1 TH/MM3 (4.0-11.0)
[2017-06-04 08:50] VITALS: BP 101/56; PULSE 77; RESP 17; TEMP 98.1
[2017-06-04] MEDS: oxyCODONE/ACETAMINOPHEN 5 MG/325 MG TAB PO PRN ×3 (08:58→20:01)
--- NOTE | 2017-06-04 09:25 | MP ---
cc: ZAHRA CINTRON MD DATE OF SURGERY June 03, 2017 PREOPERATIVE DIAGNOSES 1. Intrauterine at 39 weeks. 2. Prior delivery x 2. 3. Desires permanent sterilization. POSTOPERATIVE DIAGNOSES 1. Intrauterine at 39 weeks. 2. Prior delivery x 2. 3. Desires permanent sterilization. PROCEDURE PERFORMED 1. Repeat low transverse section with two layer closure, no extensions via Pfannenstiel skin incision. 2. Placement of Aron self-containing wound retraction. 3. Bilateral tubal ligation by modified [place] method. DESCRIPTION OF FINDINGS 1. A viable male infant in cephalic presentation with Apgars of 8 and 9, weighing 7 pounds, 10 ounces. 2. Grossly normal maternal anatomy except fallopian tubes with adhesions to the ovaries. ATTENDING SURGEON Zahra Cintron MD ASSISTANTS Dr. Linnea Carrizales. Arianna Mckeon. SPECIMENS Removed placenta. SPECIMENS SUBMITTED TO PATHOLOGY Bilateral fallopian tube segments. ESTIMATED BLOOD LOSS 400 cc. URINE OUTPUT 200 cc clear urine at the end of the procedure. IV FLUIDS 1500 cc lactated Ringer's. INDICATIONS The patient is a 31-year-old 4, para 3-0-0-3 who presented for repeat term delivery at 39 weeks. She indicated her desire for permanent surgical sterilization and had mature sterilization papers. PROCEDURE DESCRIPTION After obtaining informed consent with risks, benefits and alternatives discussed at length including but not limited to pain, infection, bleeding, injury to other organs like the bladder, bowel, nerves or vessels, injury to the baby, need for repeat operation or hysterectomy, need for a blood transfusion, would infection/breakdown and other possible complications as well as the risks of a permanent surgical sterilization including the irreversible and permanent nature of the procedure with a risk of approximately 1% of ectopic failure with resultant ectopic as well as alternative methods, the patient was taken to the operating room with reassuring heart tones. The patient underwent spinal anesthesia in the operating room and reassuring heart tones were confirmed. A Freeman catheter was placed and adequate anesthesia noted. The patient was prepped and draped in the normal sterile fashion and a time-out procedure performed. After confirming adequate anesthesia, a Pfannenstiel skin incision was made with a scalpel and carried down to the level of the fascia. The fascia was nicked in the midline with the scalpel and the fascial incision extended bluntly. The superior aspect of the fascial incision was able to be dissected off bluntly from the rectus muscles. The Mayuri clamps were applied to the inferior aspect of the fascial incision which was dissected off in a similar fashion. The rectus muscles were in the midline and the peritoneum entered bluntly. The peritoneal incision was extended bluntly. The Aron self-containing wound retractor was placed. The vesicouterine peritoneum was identified, grasped with the pickups and entered sharply with the Metzenbaum scissors. This incision was extended laterally and the bladder flap created digitally. The lower uterine segment was incised with a scalpel and the hysterotomy created bluntly. The hysterotomy was extended bluntly. The vertex was elevated to the level of the hysterotomy and delivered atraumatically followed by atraumatic delivery of the remainder of the . Two true knots were noted in the cord. After a delay of 45 seconds, the cord was doubly clamped and cut and the infant handed off to the waiting pediatric team. Cord blood was obtained for the nursery. The placenta was removed manually and the uterus was cleared of all clots and debris. The hysterotomy was repaired with a #1 chromic in a running locked fashion. A second layer of the same suture was used in an imbricating fashion. One small suture was placed after which excellent hemostasis was noted. After once again confirming the patient's desire for permanent surgical sterilization, the midportion of the left fallopian tube was grasped with a [place] and an approximately 3-4 cm segment of tube double suture ligated with 0 plain gut. An approximately 2-3 cm segment was transected with the Metzenbaum scissors and both ostia were appreciated. The tubal segments were noted to be hemostatic. Attention was turned to the right fallopian tube which was grasped in a similar fashion and double suture ligated with 0 plain gut. Again the fallopian tube was transected with the Metzenbaum scissors and both ostia were appreciated. Both tubal segments were noted to be hemostatic. The left and right fallopian tubes were once again examined and noted to be hemostatic. The hysterotomy was reexamined and noted to be hemostatic. A third time both tubal ostia and stumps were noted to be hemostatic after removal of the Aron self-containing wound retractor. The peritoneum was reapproximated with 2-0 Vicryl in a running fashion. The rectus muscles were examined and noted to be hemostatic. The fascia was reapproximated with #1 Vicryl in a running fashion. The subcutaneous tissue was irrigated with warm normal saline and noted to be hemostatic. The subcutaneous tissue was reapproximated with 0 Vicryl in an interrupted fashion. The skin edges were reapproximated with 3-0 Monocryl in a subcuticular fashion. Dermabond was placed followed by a sterile dressing. All sponge, lap and needle counts were correct x 2. I performed the entire procedure myself. Zahra Cintron MD SMS/SSB /9:57 PM /8:49 AM
--- NOTE | 2017-06-04 11:49 | HHI.OB ---
Subjective Post Operative Day: 1 Remarks Ms. Jones is a 31 yo who is POD 1 from repeat CS and tubal ligation 06/03 Patient afebrile with stable VS overnight. Patient reports that she has not had significant vaginal bleeding. Patient does not report pain this morning [ patient overnight reported concern regarding opiates as well as significant pain so was given Toradol for pain]. Patient has not yet passed gas. Patient has been able to eat some bel[place]ian fries last night. Patient has attempted to breast feed. No reported chest pain, shortness of breath, leg swelling, or dysuria. Objective Vitals/I&O Vital Signs Date Time Temp Pulse Resp B/P (MAP) Pulse Ox O2 Delivery O2 Flow Rate FiO2 06/04/17 08:50 77 101/56 (71) 06/04/17 08:50 98.1 17 06/04/17 04:00 97.6 06/04/17 04:00 76 18 98/50 (66) 97 06/04/17 01:24 18 06/03/17 23:30 98.0 63 18 95/58 (70) 95 06/03/17 22:22 16 06/03/17 20:00 98.2 80 18 97 06/03/17 20:00 91/60 (70) Result Diagram: 06/04/17 0504 Objective Remarks GENERAL: Well-nourished, well-developed patient. CARDIOVASCULAR: Regular rate and rhythm without murmurs RESPIRATORY: Breath sounds equal bilaterally. No accessory muscle use. ABDOMEN/GI: Abdomen soft, non-tender, bowel sounds present. Incision: Covered in bandage Fundus: Firm, non-tender at umbilicus. GENITOURINARY: Light to moderate bleeding. EXTREMITIES: No cyanosis or edema, non-tender, without signs of DVT. Medications and IVs Current Medications Medications (Trade) Dose Ordered Sig/Hemant Route Start Time Stop Time Status Last Admin Lactated Ringer's 1,000 ml @ 100 mls/hr Q10H IV 06/03/17 18:10 06/04/17 14:09 06/03/17 18:10 Oxytocin 500 ml @ 100 mls/hr UNSCH X1 PRN IV 06/03/17 23:15 06/04/17 23:14 (NS Flush) 2 ml BID IV FLUSH 06/03/17 21:00 (NS Flush) 2 ml UNSCH PRN IV FLUSH 06/03/17 13:15 (Tylenol) 650 mg Q6H PRN PO 06/03/17 13:15 (Motrin) 600 mg Q6H PRN PO 06/03/17 13:15 Future hold (Percocet 5-325 Mg) 1 tab Q4H PRN PO 06/03/17 13:15 (Percocet 5-325 Mg) 2 tab Q4H PRN PO 06/03/17 13:15 06/04/17 08:58 (M-M-R Ii Inj) 0.5 ml ONCE ONCE SQ 06/04/17 16:00 06/04/17 16:01 (Boostrix Inj) 0.5 ml ONCE ONCE IM 06/04/17 16:00 06/04/17 16:01 (Zofran Inj) 4 mg Q6H PRN IV PUSH 06/03/17 13:15 06/03/17 16:40 (Toradol Inj) 30 mg Q6H IV PUSH 06/03/17 21:00 06/04/17 15:01 06/04/17 08:58 (Phenergan Inj) 25 mg Q6H PRN IM 06/03/17 20:30 06/03/17 21:00 Assessment/Plan Problem List: (1) care following delivery ICD Codes: Z39.2 - Encounter for routine follow-up Status: Acute Assessment and Plan Ms. Jones is a 31 yo who is POD 1 from repeat CS and tubal ligation 06/03 -Continue routine post- care -Monitor VS, vaginal bleeding -PRN Ibuprofen, Toradol for pain control; patient defers opiates currently -Continue to encourage ambulation -Continue to encourage -Will leave dressing intact currently with planned removal later today -Will start stool softener and Simethicone Anemia Impression: Hgb 9.4 preoperatively-> 8.4 post-operatively -Will start ferrous sulfate 325mg BID UA abnormal Impression: UA with mod leuk esterase, many bacteria, 8 WBC -Will follow urine culture Pedro Watkins MD, R3 Jun 04, 2017 11:49
[2017-06-04] MEDS ORDERED: SIMETHICONE 80 MG CHEWABLE TAB CHEW PRN (14:00)
[2017-06-04] MEDS: DOCUSATE SODIUM 50 MG/SENNA 8.6 MG TAB PO PRN ×2 (14:19→20:00)
[2017-06-04] MEDS ORDERED: DIPHTH/TETANUS/ACEL PERTUSSIS (BOOSTER) 0.5 ML VIAL/PFS IM ONE (16:00)
[2017-06-04] MEDS ORDERED: MEASLES, MUMPS, RUBELLA VACCINE 0.5 ML VIAL SQ ONE (16:00)
[2017-06-04 20:00] VITALS: BP 111/72; PULSE 92; RESP 18; TEMP 98.2; O2SAT 100
[2017-06-04] MEDS: IBUPROFEN 600 MG TAB PO PRN (20:00)
[2017-06-04] MEDS ORDERED: FERROUS SULFATE 325 MG (65 MG ELEMENTAL IRON) TAB PO SCH (21:00)
[2017-06-05] MEDS: oxyCODONE/ACETAMINOPHEN 5 MG/325 MG TAB PO PRN ×4 (00:37→13:27)
[2017-06-05] MEDS: IBUPROFEN 600 MG TAB PO PRN ×2 (05:12→11:23)
[2017-06-05 08:00] VITALS: BP 99/68; PULSE 77; RESP 16; TEMP 98.1
--- NOTE | 2017-06-05 08:01 | HHI.OB ---
Subjective Post Operative Day: 2 Remarks Ms. Jones is a 31 yo who is POD 2 from repeat CS and tubal ligation 06/03 Patient afebrile with stable VS overnight. Patient reports continued abdominal pain which is worse since last night; she states that she has started taking Percocet. Patient states that pain is in lower abdomen and is exacerbated by walking. Patient has not had significant vaginal bleeding. Patient eating and passing gas normally. No urinary symptoms. No reported chest pain, shortness of breath, leg swelling, or dysuria. Objective Vitals/I&O Vital Signs Date Time Temp Pulse Resp B/P (MAP) Pulse Ox O2 Delivery O2 Flow Rate FiO2 06/04/17 20:00 98.2 92 18 111/72 (85) 100 06/04/17 08:50 77 101/56 (71) 06/04/17 08:50 98.1 17 Result Diagram: 06/04/17 0504 Objective Remarks GENERAL: Well-nourished, well-developed patient. CARDIOVASCULAR: Regular rate and rhythm without murmurs RESPIRATORY: CTAB; normal rate ABDOMEN/GI: Abdomen soft, non-tender, bowel sounds present. Incision: Intact, dry Fundus: Firm, non-tender below umbilicus. GENITOURINARY: Light to moderate bleeding. EXTREMITIES: No cyanosis or edema, non-tender, without signs of DVT. Medications and IVs Current Medications Medications (Trade) Dose Ordered Sig/Hemant Route Start Time Stop Time Status Last Admin (NS Flush) 2 ml BID IV FLUSH 06/03/17 21:00 (NS Flush) 2 ml UNSCH PRN IV FLUSH 06/03/17 13:15 (Tylenol) 650 mg Q6H PRN PO 06/03/17 13:15 (Motrin) 600 mg Q6H PRN PO 06/03/17 13:15 Future hold 06/05/17 05:12 (Percocet 5-325 Mg) 1 tab Q4H PRN PO 06/03/17 13:15 (Percocet 5-325 Mg) 2 tab Q4H PRN PO 06/03/17 13:15 06/05/17 05:12 (Zofran Inj) 4 mg Q6H PRN IV PUSH 06/03/17 13:15 06/03/17 16:40 (Phenergan Inj) 25 mg Q6H PRN IM 06/03/17 20:30 06/03/17 21:00 (Mylicon Chew) 80 mg PCHS PRN CHEW 06/04/17 14:00 06/04/17 14:18 (Asya-Colace) 2 tab BID PRN PO 06/04/17 14:00 06/04/17 20:00 (Ferrous Sulfate) 325 mg BID PO 06/04/17 21:00 06/04/17 20:00 Assessment/Plan Problem List: (1) care following delivery ICD Codes: Z39.2 - Encounter for routine follow-up Status: Acute Assessment and Plan Ms. Jones is a 31 yo who is POD 2 from repeat CS and tubal ligation 06/03 -Continue routine post- care -Monitor VS, vaginal bleeding -PRN Ibuprofen, Percocet for pain control -Patient requests increasing regimen -Continue to encourage ambulation -Continue to encourage -Continue stool softener and Simethicone Anemia Impression: Hgb 9.4 preoperatively-> 8.4 post-operatively -Continue ferrous sulfate 325mg BID UA abnormal Impression: UA with mod leuk esterase, many bacteria, 8 WBC Urine culture pending -Will follow urine culture Pedro Watkins MD, R3 Jun 05, 2017 08:01
[2017-06-05] MEDS ORDERED: FERR325T20 PO (08:42)
[2017-06-05] MEDS ORDERED: OXYC1TAB63 PO (08:42)
[2017-06-05] MEDS ORDERED: IBUP1TAB7 PO (08:42)
--- NOTE | 2017-06-05 08:43 | HHI.DCPOC ---
Discharge Care Plan Diagnosis: (1) delivery delivered Your Health Problems Are: delivery Report Symptoms to Your Doctor -Temperature above 100.5 degrees -Redness, of incision or excessive or foul smelling drainage -Unusual pain or calf pain -Increased vaginal bleeding -Painful or difficulty urinating -Feelings of extreme sadness or anxiety after 2 weeks Goals to Promote Your Health * To prevent worsening of your condition and complications * To maintain your health at the optimal level Directions to Meet Your Goals Take your medications as prescribed Follow your dietary instruction Follow activity as directed Ensure plenty of rest for recovery Drink fluids for hydration Keep your appointments as scheduled Take your immunizations and boosters as scheduled If your symptoms worsen call your PCP, if no PCP go to Urgent Care Center or Emergency Room Smoking is Dangerous to Your Health. Avoid second hand smoke Call the 24-hour crisis hotline for domestic abuse at Bobbi Sweeney MD R1 Jun 05, 2017 08:43
[2017-06-05] MEDS: DOCUSATE SODIUM 50 MG/SENNA 8.6 MG TAB PO PRN (09:33)
== END 2017-06-05 13:38 | disposition home or self-care (01) | DRG 766 ==
LOC: H2EB 08:21 → H1EA 14:24
PROVIDERS: ADMIT Obstetrics & Gynecology; ATTEND Obstetrics & Gynecology
PROC: 10D00Z1 Extraction of Products of Conception, Low, Open Approach (ICD-10-PCS; principal; 2017-06-03)
PROC: 0UB70ZZ Excision of Bilateral Fallopian Tubes, Open Approach (ICD-10-PCS; 2017-06-03)
DX: O34.211 Maternal care for low transverse scar from previous cesarean delivery (principal); D64.9 Anemia, unspecified; O99.02 Anemia complicating childbirth; Z30.2 Encounter for sterilization; Z37.0 Single live birth; Z3A.39 39 weeks gestation of pregnancy
CPT/HCPCS: 59025; 80307; 81001; 85025; 86850; 86900; 86901; 87086; 88302; J0690; J1100; J1885; J2274; J2370; J2405; J2550; J2590; J7120